=== PATIENT | female | born 1980 | race Caucasian/White ===

== ENCOUNTER → 2017-04-25 | Outpatient (CLI) | payer OTHER | END | disposition home or self-care (01) | LOC: CFH 15:34 | PROVIDERS: ATTEND Internal Medicine Hematology & Oncology | DX: N85.8 Other specified noninflammatory disorders of uterus (principal); R63.5 Abnormal weight gain | CPT/HCPCS: 76830 ==

== ENCOUNTER → 2017-05-06 | Outpatient (CLI) | payer OTHER ==
[~2017-05-06] MED LIST: OMNIPAQUE 350 MG/ML, 100ML BOTTLE ONE
== END | disposition home or self-care (01) ==
LOC: CFH 13:26
PROVIDERS: ATTEND Specialist
DX: K80.20 Calculus of gallbladder without cholecystitis without obstruction (principal); R97.1 Elevated cancer antigen 125 [CA 125]
CPT/HCPCS: 74177; Q9967